=== PATIENT | female | born 1945 | race Caucasian/White ===

== ENCOUNTER 2018-08-29 10:06 | Emergency (ER) | payer MEDICARE, OTHER ==
[~2018-08-29] VITALS: Ht 157.5 cm; Wt 51.3 kg
[2018-08-29 10:11] VITALS: BP 150/64; PULSE 66; RESP 18; Ht 157.5 cm; Wt 51.3 kg
[2018-08-29] MEDS ORDERED: ACETAMINOPHEN 500 MG TAB PO STA (11:39)
[2018-08-29] MEDS ORDERED: ACETAMINOPHEN 500 MG TAB ONE (11:44)
--- NOTE | 2018-08-29 11:45 | ERD ---
ER Documentation Chief Complaint Chief Complaint c/o headache since last night , bp @ home 170/66 HPI 73-year-old female who presents to the emergency room complaining of headache. The patient states that her blood pressure was elevated at home in the 170 range. This is above her normal. Patient describes occasional blurred vision. No slurred speech or motor weakness or facial droop. No clumsiness or ataxia noted. Patient's headache is improved currently. It was gradual in onset. Patient states compliance with her blood pressure medication. She denies any ch est pain or shortness of breath. ROS All systems reviewed and are negative except as per history of present illness. PMhx/Soc Hx Cardiac Disorders: Yes (htn) Hx Alcohol Use: No Hx Substance Use: No Hx Tobacco Use: No Smoking Status: Never smoker FmHx Family History: No diabetes Physical Exam Vitals Vital Signs Date Temp Pulse Resp B/P (MAP) Pulse Ox O2 O2 Flow FiO2 Time Delivery Rate 08/29/18 98.0 66 18 150/64 98 10:11 (92) Physical Exam General: Well developed, well nourished, no acute distress Head: Normocephalic, atraumatic. Eyes: Pupils equally reactive, EOM intact ENT: Moist mucous membranes Neck: Supple, no lymphadenopathy Respiratory: Lungs clear bilaterally, no distress Cardiovascular: RRR, no murmurs, rubs, or gallops Abdominal: Soft, non-tender, non-distended, no peritoneal signs : Deferred MSK: No edema, no unilateral swelling, 5/5 strength Neurologic: Alert and oriented, moving all extremities, normal speech, no focal weakness, no cerebellar signs are normal rapid alternating movements, steady gait without ataxia Skin: No rash Psych: Normal mood Results 24 hrs Current Medications Medications Dose Sig/Nelson Start Time Status Last (Trade) Ordered Route PRN Stop Time Admin Dose Reason Admin 1,000 mg ONCE STAT 08/29/18 UNV Acetaminophen PO 11:39 08/29/18 (Tylenol 11:40 Tab) Procedures/MDM CT brain: No acute process per radiologist read Patient's headache is likely secondary to hypertensive urgency. The patient has a nonfocal neurologic exam and her symptoms are not consistent with acute stroke or TIA. Patient has compliance with medication and no obvious signs or symptoms concerning for ischemia or infarction. The patient's headache is unlikely related to serious etiology. The patient does not exhibit any clinical signs or symptoms, and has no risk factors to suggest headache etiology such as subarachnoid hemorrhage, acute vertebral or carotid dissection, intracranial mass, epidural, subdural hematoma, dural venous sinus thrombosis, giant cell arteritis, or pseudotumor cerebri. A CT brain was ordered and shows no acute process. Patient is given Tylenol. Her blood pressure is improved without intervention. She was advised to keep a blood pressure log and follow-up with primary care physician. Return precautions were discussed And understood. The patient does not have an identifiable emergent medical condition that warrants inpatient hospitalization at this time. The patient is deemed safe for discharge with outpatient follow-up. We discussed follow up with the patient's primary care doctor within 24 to 48 hours as needed. We also discussed return to the emergency room for worsening symptoms or worsening condition. Outpatient referral: None required Discharge Medications: None required Departure Diagnosis: Primary Impression: Headache Headache type: unspecified Headache chronicity pattern: acute headache Intractability: not intractable Qualified Codes: R51 - Headache Additional Impression: Hypertensive urgency Condition: Stable Patient Instructions: Self-Care for Headaches, Hypertension, Established, Out Of Control Referrals: [facility] YOU HAVE RECEIVED A MEDICAL SCREENING EXAM AND THE RESULTS INDICATE THAT YOU DO NOT HAVE A CONDITION THAT REQUIRES URGENT TREATMENT IN THE EMERGENCY DEPARTMENT. FURTHER EVALUATION AND TREATMENT OF YOUR CONDITION CAN WAIT UNTIL YOU ARE SEEN IN YOUR DOCTORS OFFICE WITHIN THE NEXT 1-2 DAYS. IT IS YOUR RESPONSIBILITY TO MAKE AN APPOINTMENT FOR FOLOW-UP CARE. IF YOU HAVE A PRIMARY DOCTOR --you should call your primary doctor and schedule an appointment IF YOU DO NOT HAVE A PRIMARY DOCTOR YOU CAN CALL OUR PHYSICIAN REFERRAL HOTLINE AT IF YOU CAN NOT AFFORD TO SEE A PHYSICIAN YOU CAN CHOSE FROM THE FOLLOWING [facility] [address] [facility] [address] [facility] [facility] [address] [facility] [address] [facility] [address] [facility]. [facility]. [address] [facility]. [facility] YOU HAVE RECEIVED A MEDICAL SCREENING EXAM AND THE RESULTS INDICATE THAT YOU DO NOT HAVE A CONDITION THAT REQUIRES URGENT TREATMENT IN THE EMERGENCY DEPARTMENT. FURTHER EVALUATION AND TREATMENT OF YOUR CONDITION CAN WAIT UNTIL YOU ARE SEEN IN YOUR DOCTORS OFFICE WITHIN THE NEXT 1-2 DAYS. IT IS YOUR RESPONSIBILITY TO MAKE AN APPOINTMENT FOR FOLOW-UP CARE. IF YOU HAVE A PRIMARY DOCTOR --you should call your primary doctor and schedule and appointment IF YOU DO NOT HAVE A PRIMARY DOCTOR YOU CAN CALL OUR PHYSICIAN REFERRAL HOTLINE AT . IF YOU CAN NOT AFFORD TO SEE A PHYSICIAN YOU CAN CHOSE FROM THE FOLLOWING [facility] INSTITUTIONS: [facility] [address] [place] [address] [facility] [address] [place] [address] [facility] + [facility] [address] [place] [address] Additional Instructions: Call your primary care doctor TOMORROW for an appointment during the next 1 WEEK.Tell the wireless watcher that you were referred from this facility.See the doctor sooner or return here if your condition worsens before your appointment time. Keep a log of your blood pressure and check a maximum of 3 times daily. Return for any signs of stroke, facial drooping or motor weakness. Any chest pain or shortness of breath in the setting of elevated blood pressure. MAGGIE OBRIEN MD Aug 29, 2018 11:45
== END 2018-08-29 12:28 | disposition home or self-care (01) ==
LOC: E/R 10:06
DX: I16.0 Hypertensive urgency (principal); I10 Essential (primary) hypertension
CPT/HCPCS: 70450